=== PATIENT | female | born 1970 | race Caucasian/White ===

== ENCOUNTER 2017-10-11 09:02 | Outpatient (CLI) | payer OTHER | END 2017-10-11 09:03 | disposition home or self-care (01) | LOC: DTY/OP 09:02 | PROVIDERS: ATTEND Surgery | DX: E11.9 Type 2 diabetes mellitus without complications (principal); I10 Essential (primary) hypertension | CPT/HCPCS: 97802 ==

== ENCOUNTER 2018-02-11 08:40 | Outpatient (CLI) | payer OTHER | END 2018-02-11 08:41 | disposition home or self-care (01) | LOC: DTY/OP 08:40 | PROVIDERS: ATTEND Surgery | DX: E66.01 Morbid (severe) obesity due to excess calories (principal) | CPT/HCPCS: 97802 ==